=== PATIENT | male | born 1995 | race Asian ===

== ENCOUNTER 2017-09-24 21:07 | Emergency (ER) | payer OTHER ==
[~2017-09-24] VITALS: Ht 165.1 cm; Wt 65.9 kg
[2017-09-24] MEDS ORDERED: KETOROLAC TROMETHAMINE 30 MG/ML VIAL IM ONE (22:30)
[2017-09-24] MEDS ORDERED: DEXAMETHASONE SOD PHOS 4 MG/ML 5 ML VIAL IM ONE (22:30)
[2017-09-24] MEDS ORDERED: CefTRIAXone SODIUM 1 GM/VIAL IM ONE (22:30)
[2017-09-24] MEDS ORDERED: LIDOCAINE HCL/PF 1% 2 ML VIAL IM ONE (22:30)
[2017-09-24] MEDS ORDERED: SODIUM CHLORIDE 0.9% 1,000 ML IV ONE (23:00)
[2017-09-24] MEDS ORDERED: ACETAMINOPHEN 500 MG TABLET PO ONE (23:00)
[2017-09-25 00:49] VITALS: BP 122/68
== END 2017-09-25 00:58 | disposition home or self-care (01) ==
LOC: EMS 21:08
DX: J03.90 Acute tonsillitis, unspecified (principal)
CPT/HCPCS: 96360; 96372; 99284; J0696; J1100; J1885; J3490; J7030